=== PATIENT | female | born 1950 | race Caucasian/White ===

== ENCOUNTER 2021-04-25 17:03 | Emergency (ER) | payer MEDICARE, OTHER ==
--- NOTE | 2021-04-25 18:53 | ED ---
URI HPI - General Source: patient Mode of arrival: ambulatory Limitations: no limitations <Whitley Miguel - Last Filed: 04/25/21 21:36> <Tania Kelley - Last Filed: 04/26/21 00:32> - General Chief Complaint: Upper Respiratory Infection Stated Complaint: Covid + Time Seen by Provider: 04/25/21 18:30 - History of Present Illness Initial Comments: 71 year-old female patient presents to the emergency department requesting monoclonal antibody infusion. States she has been sick for the last 9 days with nasal congestion, headaches, and cough. She tested positive at home, then had positive COVID test at [facility] yesterday. She states she is feeling better. Reports mild nasal congestion and intermittent mild headaches. Denies any fever or chills. States she has decreased appetite. Denies diarrhea. Denies any shortness of breath or chest pain. (Whitley Miguel) - Related Data Home Medications Medication Instructions Recorded Confirmed Aspirin EC [Ecotrin Low Dose] 81 mg PO DAILY 04/25/21 04/25/21 Atorvastatin Calcium [Lipitor] 20 mg PO Q48H 04/25/21 04/25/21 Azithromycin [Zithromax] 500 mg PO DAILY 04/25/21 04/25/21 Cholecalciferol [Vitamin D3 (125 125 mcg PO DAILY 04/25/21 04/25/21 Mcg = 5000 Iu)] Dexamethasone 6 mg PO DIRECTED 04/25/21 04/25/21 Dexlansoprazole [Dexilant] 60 mg PO AC-BRKFST 04/25/21 04/25/21 Docusate [Colace] 300 mg PO DAILY 04/25/21 04/25/21 Fluticasone Nasal [place] [Flonase 2 spray EA NOSTRIL DAILY 04/25/21 04/25/21 Nasal [place]] Fluticasone/Vilanterol [Breo 1 puff INHALATION RT-DAILY 04/25/21 04/25/21 Ellipta 200-25 Mcg Inhaler] Losartan Potassium [Cozaar] 12.5 mg PO DAILY 04/25/21 04/25/21 Metoprolol Succinate [Toprol XL] 12.5 mg PO DAILY 04/25/21 04/25/21 Ubidecarenone [Co Q-10] 200 mg PO DAILY 04/25/21 04/25/21 Allergies Allergy/AdvReac Type Severity Reaction Status Date / Time ciprofloxacin [From Cipro] Allergy Unknown Verified 04/25/21 19:39 morphine Allergy Unknown Verified 04/25/21 19:39 ondansetron [From Zofran] Allergy Unknown Verified 04/25/21 19:39 Review of Systems ROS Other: All systems not noted in ROS Statement are negative. <Whitley Miguel - Last Filed: 04/25/21 21:36> ROS Other: All systems not noted in ROS Statement are negative. <Tania Kelley - Last Filed: 04/26/21 00:32> ROS Statement: Those systems with pertinent positive or pertinent negative responses have been documented in the HPI. Past Medical History Past Medical History: COPD, Renal Disease Additional Past Medical History / Comment(s): ckd stage 3, cardiomyopathy Past Surgical History: Cardiac Ablation, Section, Hysterectomy, Tonsillectomy Past Psychological History: No Psychological Hx Reported Smoking Status: Former smoker Past Alcohol Use History: None Reported Past Drug Use History: None Reported <Whitley Miguel - Last Filed: 04/25/21 21:36> General Exam Limitations: no limitations General appearance: alert, in no apparent distress, other (This is a well- developed, well-nourished adult female in no acute distress.) ENT exam: Present: normal exam, normal oropharynx, mucous membranes moist Respiratory exam: Present: normal lung sounds bilaterally. Absent: respiratory distress, wheezes, rales, rhonchi, stridor Cardiovascular Exam: Present: regular rate, normal rhythm, normal heart sounds. Absent: systolic murmur, diastolic murmur, rubs, gallop, clicks GI/Abdominal exam: Present: soft, normal bowel sounds. Absent: distended, tenderness, guarding, rebound, rigid Neurological exam: Present: alert, oriented X3, CN II-XII intact Psychiatric exam: Present: normal affect, normal mood Skin exam: Present: warm, dry, intact, normal color. Absent: rash <Whitley Miguel - Last Filed: 04/25/21 21:36> Course Vital Signs 04/25/21 04/25/21 17:56 21:00 Temperature 97.9 F 97.6 F Pulse Rate 84 80 Respiratory 18 16 Rate Blood Pressure 122/77 106/70 O2 Sat by Pulse 97 98 Oximetry Medical Decision Making <Whitley Miguel - Last Filed: 04/25/21 21:36> <Tania Kelley - Last Filed: 04/26/21 00:32> - Medical Decision Making 71-year-old female patient presented to the emergency department today requesting monoclonal antibody infusion. She's been sick with symptoms was last 9 days and tested positive yesterday Silvia Osorio. Physical examination is unremarkable. She is in no respiratory distress. Vital signs are unremarkable. She did meet criteria to receive the infusion. She tolerated it well. She'll be discharged to follow up with her primary care physician for recheck in 1-2 days. Return parameters were discussed in detail. She verbalizes understanding and agrees with this plan. My attending is Dr. Kelley. (Whitley Miguel) I was available for consultation in the emergency department. The history and physical exam were done by the midlevel provider. I was consulted for this patients care. I reviewed the case with the midlevel provider and based on their presentation of the patient, I agree with the assessment, medical decision making and plan of care as documented. (Tania Kelley) Disposition Is patient prescribed a controlled substance at d/c from ED?: No Time of Disposition: 20:49 <Whitley Miguel - Last Filed: 04/25/21 21:36> <Tania Kelley - Last Filed: 04/26/21 00:32> Clinical Impression: COVID-19 Disposition: HOME SELF-CARE Condition: Good Instructions (If sedation given, give patient instructions): Coronavirus Disease 2019 (COVID-19) Additional Instructions: Tips to help you feel better: -Maintain adequate fluid intake - especially water. -Rest, you are healing your body will require extra sleep. -Eat even if you do not feel like it - broth, jello, toast are fine if you cannot eat full meals. -Take tylenol and motrin alternating (if you have no allergies or have not been instructed to avoid these medications) to help with body aches and fevers. -Obtain over the counter vitamin C, zinc, and vitamin D3. -Take medications as prescribed. Follow-up with your primary care physician for recheck in 1-2 days. Return for any new, worsening, or concerning symptoms. Referrals: Sarbjit Dwyer MD [Primary Care Provider] - 1-2 days
[2021-04-25] MEDS ORDERED: CASIRIVIMAB (REGN10933) (EUA) 600 MG, IMDEVIMAB (REGN10987) (EUA) 600 MG in SODIUM CHLO... IVPB ONE (19:30)
[2021-04-25] MEDS ORDERED: SODIUM CHLORIDE 0.9% 50 ML IVPB ONE (20:00)
[2021-04-25 21:01] VITALS: BP 106/70; PULSE 80; RESP 16; TEMP 97.6
== END 2021-04-25 21:00 | disposition home or self-care (01) ==
LOC: EC 17:03
DX: U07.1 COVID-19 (principal); J44.9 Chronic obstructive pulmonary disease, unspecified; N18.30 Chronic kidney disease, stage 3 unspecified; Z79.82 Long term (current) use of aspirin; Z88.1 Allergy status to other antibiotic agents; Z88.5 Allergy status to narcotic agent; Z90.710 Acquired absence of both cervix and uterus; Z87.891 Personal history of nicotine dependence
CPT/HCPCS: 99283; 96360; Q0244